=== PATIENT | female | born 1970 | race Caucasian/White ===

== ENCOUNTER 2017-02-05 03:09 | Observation (INO) | payer OTHER ==
[~2017-02-05] VITALS: Ht 167.6 cm; Wt 131.6 kg
--- NOTE | ~2017-02-05 | 2DMMODE ---
[facility] [place] [address] 2 D/M-MODE ECHOCARDIOGRAM Name: LUIZA CODY Room #: 433-I ADM IN [facility]#: [id number] Admission: 02/05/17 Attend Phys: Rich Lee Discharge: Date of : 74 Date of Service: 02/05/17 [facility] Report #: [id number] THIS REPORT FOR: //name// APPROVED REPORT EXAM: Comprehensive 2D, Doppler, and color-flow Echocardiogram Patient Location: Bedside Blood Pressure: 115/67 mmHg HR: 79 bpm Rhythm: NSR Other Information Study Quality: Adequate Indications Diabetes Dyspnea Chest Pain 2D Dimensions LVEF(%): 42.68 (>50%) IVSd: 12.14 (7-11mm) LVOT Diam: 20.00 (18-24mm) LVDd: 38.84 mm PWd: 12.39 (7-11mm) Ascending Aorta: 27.69 mm LVDs: 30.83 (25-40mm) Jurado's LVEF: 42.68 % Volumes Left Atrial Volume (Systole) Single Plane 4CH: 29.46 mL Single Plane 2CH: 50.18 mL LA ESV Index: 17.00 mL/m2 Aortic Valve AoV Peak Walker.: 1.29 m/s AO Peak Gr.: 7.32 mmHg LV Max P.99 mmHg LV Max: 0.86 m/s Mitral Valve MV PHT: 63.81 ms MV E Max Walker.: 1.18 m/s E/A Ratio: 1.4 MV A Walker.: 0.86 m/s MV Decel. Time: 220.03 ms [facility] [address] [place] [address] 2 D/M-MODE ECHOCARDIOGRAM Name: LUIZA CODY Room #: 433 ADM IN [facility]#: [id number] Admission: 02/05/17 Attend Phys: Rich eLe Discharge: Date of : 74 Date of Service: 02/05/17 1500 Report #: [id number] Pulmonary Valve PV Peak Walker.: 0.84 m/s PV Peak Gr.: 2.82 mmHg Left Ventricle The left ventricle is normal size. There is normal LV segmental wall motion. There is normal left ventricular wall thickness. Left ventricular systolic function is normal. LVEF is within normal limits. The left ventricular diastolic function is normal. Right Ventricle Right ventricle is dilated. The right ventricular systolic function is normal. Atria The left atrium size is normal. The right atrium size is normal. Aortic Valve The aortic valve is normal in structure. No aortic regurgitation is present. There is no aortic valvular stenosis. Mitral Valve The mitral valve is normal in structure. There is no mitral valve regurgitation noted. Tricuspid Valve The tricuspid valve is normal in structure. Trace tricuspid regurgitation. Pulmonic Valve The pulmonary valve is normal in structure. There is no pulmonic valvular regurgitation. Great Vessels The aortic root is normal in size. IVC is not visualized. Pericardium There is no pericardial effusion. <Conclusion> The left ventricle is normal size. LVEF is within normal limits. Right ventricle is dilated. The aortic valve is normal in structure. [facility] [address] [place] [address] 2 D/M-MODE ECHOCARDIOGRAM Name: LUIZA CODY [place] Room #: 433-I ADM IN ..#: [id number] Admission: 02/05/17 Attend Phys: Rich Lee Discharge: Date of : 74 Date of Service: 02/05/17 1500 Report #: [id number] The mitral valve is normal in structure. The tricuspid valve is normal in structure. Trace tricuspid regurgitation. <ELECTRONICALLY SIGNED> By: Gerson Oseguera MD 02/05/17 1500 1500 1500 Gerson Oseguera MD /INF
--- NOTE | ~2017-02-05 | CATHLAB ---
[facility] [place] [address] INVASIVE PROCEDURE REPORT Name: LUIZA CODY Room #: 433-I DIS IN [facility]#: [id number] Admission: 02/05/17 Attend Phys: Rich Lee Discharge: 02/06/17 Date of : 74 Date of Service: 02/06/17 0815 Report #: [id number] THIS REPORT FOR: //name// CC: Phillip Olivier PROCEDURE: Left heart coronary angiography. INDICATIONS: Chest pain. DESCRIPTION OF PROCEDURE: The potential benefits and risks of the procedure were discussed at length with the patient who understood. Full written and informed consent was obtained. The patient was brought into the catheterization suite where her right groin was prepped and draped in a sterile fashion. She was sedated with intravenous Versed, 1% Xylocaine was used as local anesthetic. A 6-Sammarinese sheath was placed in the right femoral artery by the modified Seldinger technique. Left heart catheterization was performed with a 6-Sammarinese angled pigtail catheter. Ventriculography was not performed. Pullback gradients were measured across the aortic valve. Selective coronary angiography was performed with a 6-Sammarinese left and right 4 cm Jasen coronary catheter. All diagnostic catheters were removed. A hand injection was performed to the right groin sheath with placement of a Mynx device upon removal of the sheath. The patient remained in excellent condition at the conclusion of the procedure with good right groin hemostasis and intact distal pulses. RESULTS: LEFT HEART HEMODYNAMICS: 1. Left ventricular systolic pressure of 140. 2. Left ventricular end diastolic pressure of 18. 3. Aortic valve, no gradient was present on pullback across the aortic valve, central aortic pressure of 140/70. SELECTIVE CORONARY ANGIOGRAPHY: 1. Left main: Left main was normal. 2. Left anterior descending: The left anterior descending was a large vessel that extended to the inferior apex. The LAD gave rise to several moderate sized diagonal branches. The LAD and its branches were normal. 3. The circumflex was large, but nondominant. Circumflex gave rise to 3 marginal branches. The marginal branches were small to moderate in size. Circumflex and its branches were normal. 4. Right coronary: The right coronary was large and dominant. The right coronary was normal throughout its course including a large posterior descending and posterolateral branch. SUMMARY: 1. Normal left main. [facility] [address] [place] [address] INVASIVE PROCEDURE REPORT Name: LUIZA CODY Room #: 433-I [facility] IN [facility]#: [id number] Admission: 02/05/17 Attend Phys: Rich Lee Discharge: 02/06/17 Date of : 74 Date of Service: 02/06/17 0815 Report #: [id number] 2. Normal coronary vasculature. This was a right coronary dominant circulation. <ELECTRONICALLY SIGNED> By: Apolinar Butts MD, [facility] 02/07/17 1703 0815 1037 Apolinar Butts MD, [facility] /nt
--- NOTE | ~2017-02-05 | HC ---
[facility] [address] [place] [address] CONSULTATION Name: LUIZA CODY Room #: [facility]-I [facility] MFidel#: [id number] Admission: 02/05/17 Attend Phys: David Olivier MD Discharge: Date of : 74 Report #: [id number] THIS REPORT FOR: //name// CC: Phillip Olivier DATE OF SERVICE: 02/05/2017 REASON FOR CONSULTATION: Chest pain. HISTORY OF PRESENT ILLNESS: The patient is a 46-year-old woman with a history of diabetes and tobacco dependency. She has a history of remote SVT. She now presents with a 1 week history of off and on again chest discomfort. She describes this as a squeezing like pain. She thought that this was her usual reflux and started taking antacids earlier in the week. Around midnight last night, the pain recurred. This was a severe midsternal chest tightness that radiated to the left arm and was associated with shortness of breath. Pain went through to her back. She presented to the Emergency Department at [facility] where she was given heparin, nitroglycerin, fentanyl, aspirin and Lopressor. She has had improvement, although not resolution of the pain. Her presenting EKG demonstrated no acute ST or T-wave changes. Initial and followup troponin levels have been normal. ALLERGIES: She is allergic to MORPHINE, CARROTS, ERYTHROMYCIN, REGLAN, ONIONS, SHELLFISH and IODINATED CONTRAST. MEDICATIONS: Include Humalog, Mirapex, metformin 1000 mg daily, Invokana 300 mg daily, simvastatin 20 mg daily. PAST MEDICAL HISTORY: Medical records have been reviewed and include history of diabetes, ovarian cancer with radical hysterectomy, venous clots related to 2 previous PICC line placements, cholecystectomy, appendectomy, multiple adhesions with adhesiolysis, perforated viscus at the time of Sedrick fundoplication. SOCIAL HISTORY: She is an ongoing smoker. . FAMILY HISTORY: Notable for premature coronary artery disease in both parents. REVIEW OF SYSTEMS: All systems negative except as that noted above. PHYSICAL EXAMINATION: GENERAL: A pleasant woman in no distress. VITAL SIGNS: Blood pressure is 115/67, heart rate of 96 and regular. She is afebrile, 5 feet 6 inches tall, 290 pounds. HEENT: There are neither xanthelasma, subcutaneous xanthomata, oral mucosal or digital cyanosis or kyphoscoliosis present. [facility] [address] [place] [address] CONSULTATION Name: LUIZA CODY Room #: 433-I [facility]#: [id number] Admission: 02/05/17 Attend Phys: David Olivier MD Discharge: Date of : 74 Report #: [id number] CHEST: Clear to auscultation and percussion. CARDIAC: Regular rate and rhythm with normal S1, S2. No murmurs or rubs. ABDOMEN: Soft and nontender. EXTREMITIES: Without cyanosis, clubbing or edema. Radial pulses are 2+. NEUROLOGIC: She is alert with a nonfocal exam. LABORATORY DATA: White count 10.5, hemoglobin 14, platelet count 194, glucose 155, creatinine 0.71. Sodium 140, potassium 3.6, alkaline phosphatase 130, CPK 0. IMPRESSION: 1. Chest pain with mixed features for ischemia. 2. Diabetes. 3. Dyslipidemia. 4. Tobacco dependency. 5. Family history of premature coronary artery disease. 6. IODINE allergy or CONTRAST allergy. RECOMMENDATIONS: 1. Serial cardiac enzymes. 2. Echocardiogram with Doppler. 3. Smoking cessation was encouraged. Smoking cessation counseling performed. 4. High intensity statin therapy, continued use of a daily aspirin. 5. Coronary angiography. Coronary angiography with premedication. I have discussed the angiographic procedure in detail with the patient. I have outlined its risks as well as the risks associated with a possible percutaneous intervention. After a thorough discussion of the procedure, its risks and alternatives and after answering her questions in detail. She is agreeable to proceeding. This will need to be performed after adequate premedication for her CONTRAST allergy. <ELECTRONICALLY SIGNED> By: Apolinar Butts MD, FACC 02/06/17 0810 0801 1040 Apolinar Butts MD, FAC /nt
--- NOTE | ~2017-02-05 | EKG ---
[place] [address] [address] [facility] [place] [address] ELECTROCARDIOGRAM REPORT Name: LUIZA CODY CAZARES Room #: 433-I [facility] M.R.#: [id number] Admission: 02/05/17 Attend Phys: David Olivier MD Discharge: Date of : 74 Report #: [id number] THIS REPORT FOR: //name// [facility] Test Date: 2017-02-05 Test Time: 09:32:43 Pat Name: LUIZA CODY Department: Room: [facility] Gender: F [employer] Worker: brenton : 1970 Requested By: Katerin Nino Order Number: [id number] MD: Apolinar Butts Measurements Intervals Froid Rate: 84 P: 49 [place]: 149 QRS: 61 QRSD: 100 T: 26 QT: 381 QTc: 451 Interpretive Statements Sinus rhythm Anteroseptal infarct, age indeterminate No previous ECG available for comparison Electronically Signed On 02-06-2017 8:29:07 CDT by Apolinar Butts [email or web address] <ELECTRONICALLY SIGNED> By: Apolinar Butts MD, [facility] 02/06/17 0829 0932 1 Apolinar Butts MD, FACC /EPI
[~2017-02-05 03:09] MED LIST: ACIDOPHILUS LA1 EACH PO; ASA5UEC PO; ATIVAN0.5 MG PO; CIPROFLOXACIN500 M1 PO; COLACE 100 MG100 MG PO; DILAUDID2 MG PO; FLAGYL500 MG PO; HUMALOG100 UNIT/1 SQ; IBUPROFEN 800800 MG PO; INDOMETHACIN 2525 MG PO; LEVEMIR100 UNIT/1 SQ; LIPITOR10 MG PO; METFORMIN HCL500 MG PO; METOPROLOL SUCC50 MG PO; MIRAPEX1 MG PO; MULTAQ 400 MG400 MG PO; NEXIUM40 MG PO; NORCO 10-325 T1 EACH PO; PERCOCET 10-321 EACH PO; PERCOCET 5-3251 EACH PO; PERCOCET PO; ROBAXIN 750 MG750 M1 PO; TYLENOL325 MG PO; ZOFRAN4 MG PO
[2017-02-05 04:40] VITALS: BP 115/67
[2017-02-05] MEDS ORDERED: METFORMIN HCL500 MG PO (05:06)
[2017-02-05] MEDS ORDERED: INVOKANA300 MG PO (05:08)
[2017-02-05] MEDS ORDERED: TOUCH-TROL1 EACH MC (05:08)
[2017-02-05] MEDS ORDERED: ZOCOR20 MG PO (05:09)
[2017-02-05 07:33] LABS: ALBUMIN 3.2 g/dL (3.4-5.0); ALKALINE PHOSPHATASE 122 U/L (46-116); ANION GAP 11 mmol/L (7-16); BUN 12 mg/dL (7-18); CALCIUM 9.2 mg/dL (8.5-10.1); CHLORIDE 103 mmol/L (98-107); CO2 27 mmol/L (21-32); CREATININE 0.7 mg/dL (0.6-1.3); GLUCOSE 146 mg/dL (70-99); POTASSIUM 3.9 mmol/L (3.5-5.1); SGOT 13 U/L (15-37); SGPT 19 U/L (30-65); SODIUM 141 mmol/L (136-145); TOTAL BILIRUBIN 0.3 mg/dL (<0.1-1.0); TOTAL PROTEIN 7.4 g/dL (6.4-8.2); TROPONIN-I < 0.04 ng/mL (<0.04-0.07)
[2017-02-05 08:13] LABS: CHOLESTEROL 205 mg/dL (<200); HDL CHOLESTEROL 37 mg/dL (>40); LDL CHOLESTEROL 96 mg/dL (<100); TC:HDL 5.5 Ratio (Not establshd); TRIGLYCERIDE 360 mg/dL (<150); VLDL 72 mg/dL (<40)
[2017-02-05 16:00] VITALS: BP 147/81
[2017-02-05 19:15] VITALS: BP 120/70
[2017-02-06] VITALS (11 sets, daily range): BP systolic 117–155; BP diastolic 67–84
[2017-02-06 04:12] LABS: HEMOGLOBIN 14.8 gm/dL (12.0-15.0); MCH 31.3 pg (26.0-34.0); MCHC 32.9 g/dL (28.0-37.0); RBC 4.74 mil/uL (4.20-5.00); RDW 14.4 % (10.5-14.5); WBC 13.8 thou/uL (4.0-11.0)
[2017-02-06 04:16] LABS: CALCIUM 9.7 mg/dL (8.5-10.1); CREATININE 0.7 mg/dL (0.6-1.3); POTASSIUM 4.3 mmol/L (3.5-5.1)
[2017-02-06] MEDS ORDERED: ADULT LOW DOSE81 MG PO (09:59)
[2017-02-06] MEDS ORDERED: LOPRESSOR25 PO (09:59)
== END 2017-02-06 19:42 | disposition home or self-care (01) ==
LOC: 4S 03:09
PROVIDERS: Family Medicine; Internal Medicine; Nurse Practitioner
DX: R07.9 Chest pain, unspecified (principal); R06.02 Shortness of breath; Z72.0 Tobacco use; I48.0 Paroxysmal atrial fibrillation; E11.9 Type 2 diabetes mellitus without complications; E78.5 Hyperlipidemia, unspecified; C56.9 Malignant neoplasm of unspecified ovary; G47.33 Obstructive sleep apnea (adult) (pediatric); E66.01 Morbid (severe) obesity due to excess calories; I48.92 Unspecified atrial flutter

== ENCOUNTER → 2021-01-31 | Outpatient (CLI) | payer BC ==
[~2021-01-31] MED LIST changes: +ADULT LOW DOSE81 MG PO; +INVOKANA300 MG PO; +LOPRESSOR25 PO; +TOUCH-TROL1 EACH MC; +ZOCOR20 MG PO
== END ==
LOC: SJCVCIMAG 08:51
PROVIDERS: ATTEND Internal Medicine
DX: R00.0 Tachycardia, unspecified (principal); R00.2 Palpitations; I48.91 Unspecified atrial fibrillation; E11.9 Type 2 diabetes mellitus without complications; E78.5 Hyperlipidemia, unspecified; I10 Essential (primary) hypertension; F17.200 Nicotine dependence, unspecified, uncomplicated; Z79.4 Long term (current) use of insulin; Z79.899 Other long term (current) drug therapy

== ENCOUNTER 2021-04-20 06:31 | Observation (INO) | payer BC ==
[~2021-04-20] VITALS: Ht 167.6 cm; Wt 133.8 kg
[2021-04-20 07:42] LABS: ABSOLUTE NEUTROPHILS 7.4 thou/uL (1.4-8.2); EOSINOPHILS 2.7 % (0.0-3.0); HEMATOCRIT 43.1 % (37.0-47.0); HEMOGLOBIN 14.2 gm/dL (12.0-15.0); LYMPHOCYTES 26.6 % (24.0-44.0); MCH 32.6 pg (26.0-34.0); MCHC 32.8 g/dL (28.0-37.0); MCV 99.1 fL (80.0-100.0); MONOCYTES 8.2 % (1.0-8.0); PLATELET COUNT 290 thou/uL (150-400); POLYS 61.5 % (36.0-66.0); RBC 4.35 mil/uL (4.20-5.00); RDW 14.7 % (10.5-14.5)
[2021-04-20 07:48] VITALS: BP 102/67
[2021-04-20 07:52] LABS: CREATININE 0.8 mg/dL (0.6-1.0); POTASSIUM 4.1 mmol/L (3.5-5.1)
[2021-04-20] MEDS ORDERED: PROAIR HFA8.5 GM INH (07:56)
[2021-04-20] MEDS ORDERED: ZIPSOR25 MG PO (07:57)
[2021-04-20] MEDS ORDERED: CYMBALTA30 MG PO (07:58)
[2021-04-20] MEDS ORDERED: JARDIANCE10 MG PO (07:58)
[2021-04-20] MEDS ORDERED: NOVOLOG100 UNIT/M SUBQ (07:59)
[2021-04-20 08:00] LABS: TOTAL BILIRUBIN 0.2 mg/dL (0.2-1.0)
[2021-04-20] MEDS ORDERED: OMEPRAZOLE 20 M20 M1 PO (08:01)
[2021-04-20] MEDS ORDERED: TOPROL XL50 MG PO (08:01)
[2021-04-20] MEDS ORDERED: LEVEMIR FL100 UNIT/2 SUBQ (08:01)
[2021-04-20] MEDS ORDERED: OXYCONTIN10 M1 PO (08:02)
[2021-04-20] MEDS ORDERED: XARELTO20 MG PO (08:02)
[2021-04-20 08:09] LABS: APTT 23.9 Seconds (24.5-32.8); INR 0.87; PROTIME 9.5 Seconds (10.5-12.1)
[2021-04-20 12:15] VITALS: BP 129/67
[2021-04-20 12:25] VITALS: BP 129/67
--- NOTE | 2021-04-20 12:49 | NUR ---
PT ARRIVED FROM THE POSTOP AROUND 1220, PRIOR TO ARRIVAL, PT'S WAS AT BEDSIDE AND RN WAS ABLE TO RETREIVE INFORMATION FROM HIM, SURGERY FOR THE R KNEE WAS ABOUT A WEEK AND HALF AGO, NON WEIGHTBEARING AT THAT KNEE, THOUGH WAS REPORTED PT WAS MOBILIZING AROUND HOME USING A WALKER. PT HAS CHRONIC BACK PX, ACCOMPANIED AT THE TIME OF ARRIVAL, DUE TO BACK PX, PT WAS TRANSFERRED ON THE GURNEY AT ABOUT 15DEGREE HOB UP. RN CONTINUED, SITE HAD NO SIGNS OF BLEEDING OR PAIN AT THAT SITE. PT INSTRUCTED TO LAY FLAT POSSIBLE, CALL FOR NEEDS, HEMOSTASIS/GET UP TIME EXPLAINED TO BOTH PT AND SPOUSE. NO OTHER COMPLAINTS BESIDES PAIN AT THIS TIME.
[2021-04-20 20:00] VITALS: BP 117/78
[2021-04-21 00:16] VITALS: BP 114/77
[2021-04-21 07:23] VITALS: BP 120/48
[2021-04-21] MEDS ORDERED: ZOCOR20 MG PO (07:55)
--- NOTE | 2021-04-21 09:15 | NUR ---
ASSUMED PT CARE AT 0700, DUE TO POC PT ASSESSMENT PEFORMED AT AT THIS TIME. PT PREPARING TO BE D/C HOME WHEN ARRIVES. VSS. WILL CONTINUE TO MONITOR AND FOLLOW POC.
--- NOTE | 2021-04-21 09:32 | P ---
[facility] [place] [address] [place] [address] PROCEDURE REPORT Name: LUIZA CODY Room #: 208-P [facility] M.R.#: [id number] Admission: 04/20/21 Attend Phys: Collin Monsalve MD Discharge: Date of : 74 Report #: [id number] THIS REPORT FOR: cc: Phillip Frazier,Collin Vincent MD ~ DOC #: [id number] Collin Monsalve MD DATE OF SERVICE: 04/20/2021 PREOPERATIVE DIAGNOSIS: Atrial fibrillation. POSTOPERATIVE DIAGNOSIS: Atrial fibrillation. PROCEDURE PERFORMED: 1. Atrial fibrillation ablation -- CPT code 94459. 2. Program stimulation pacing after IV drug infusion, CPT code 72113. 3. 3D mapping, CPT code 00932. 4. Intracardiac echo, CPT code 88598. ANESTHESIA: The patient underwent general anesthesia with no anesthesia-related complications. INDICATIONS: The patient underwent informed consent. We discussed the details of the procedure including the risks, which include, but not limited to, bleeding, vascular damage, stroke, ID, cardiac perforation, damage to the salt river conduction system requiring permanent pacemaker. She understood these risks and is willing to proceed. DESCRIPTION OF PROCEDURE: The patient was brought to the EP laboratory in fasting and sedated state, prepped and draped in a sterile fashion. I obtained access to the right femoral vein x 3, placing 8, 9, and 7-Namibian short sheath using modified Seldinger technique; and under fluoroscopy, decapolar catheter was placed easily in the coronary sinus and ICE catheter was placed in the right atrium. Using intracardiac ultrasound, there was evidence of two left and two right pulmonary veins. The patient was systemically heparinized and a transseptal was performed using SL1 sheath and a [place] needle. I started using my standard needle, but then had to go to a large curve [place] needle. She had a very rotated heart; and in my usual fluoroscopic positioning of my SL1 sheath, I kept falling below the atrium and across the tricuspid valve. Therefore, I went more posteriorly in my VINSON projection than usual and then I came across the mid septum; and at this point, the transseptal was straightforward and I exchanged the SL1 sheath for the cryosheath and the ablation was initiated. Prior to ablation, I used the Lasso catheter to create a 3D geometry and voltage map of the left atrium and then the cryoballoon was placed in the left atrium for ablation. The left superior pulmonary vein and the left inferior pulmonary [address] [address] PROCEDURE REPORT Name: LUIZA CODY Room #: 208-P [facility] M.R.#: [id number] Admission: 04/20/21 Attend Phys: Collin Monsalve MD Discharge: Date of : 74 Report #: [id number] vein were in very close proximity. I attempted a 4-minute followed by 3-minute freeze of the left superior pulmonary vein and these attempts were very good, but the vein did not isolate. I performed a 100-second followed by 90 second freeze, each of which was inferiorly and superiorly directed, and this did not result in isolation. Then, I performed a final freeze of 120 seconds with the balloon primarily on the roof region above the left superior pulmonary vein and again this did not result in isolation. Therefore, I turned my attention to the left inferior pulmonary vein. This vein underwent a 4-minute freeze isolating at 34 seconds; and then when I interrogated the left superior pulmonary vein, it was now isolated. I turned my attention to the right-sided veins. The right superior pulmonary vein underwent a 3-minute freeze and isolated at 90 seconds. I came off because of cool temps. I performed a second freeze of 2 minutes duration. I came off because of cool temps. There was never any phrenic nerve compromise. The right inferior pulmonary vein needed a single 4-minute freeze isolating at 54 seconds. Next, a repeat voltage map was created and all 4 pulmonary veins were isolated. Post-ablation, an EP study was performed. Atrial burst pacing was performed and AV block was noted at 250 milliseconds. Atrial ERP was noted at 190 milliseconds at a 400-millisecond basic drive cycle length. No arrhythmias were induced. Isoproterenol was then initiated at 2 mcg per minute. With atrial burst pacing, there was evidence of right bundle branch block aberration. AV block was noted at 230 milliseconds. Atrial ERP was noted at 180 milliseconds at a 200-millisecond basic drive cycle length. I performed aggressive atrial burst pacing between 200-250 milliseconds and I could not induce any AFib, SVT, or atrial flutter. As such, the procedure was concluded. Using intracardiac ultrasound, I verified there was no pericardial effusion. The patient received systemic protamine and catheters and sheaths were pulled and hemostasis obtained. A [id number] suture was performed to the right groin region. CONCLUSIONS: 1. Successful AFib ablation with isolation of the pulmonary veins. 2. Normal EP study with no inducible arrhythmias on or off isoproterenol. MD NICA GonsalesC/CHRISTINE <ELECTRONICALLY SIGNED> By: Collin Monsalve MD 04/21/21 0932 1051 57 Collin Monsalve MD /sukh
[2021-04-21 09:45] VITALS: BP 120/48
== END 2021-04-21 10:11 | disposition home or self-care (01) ==
LOC: CATH 06:31 → 2N 12:47
PROVIDERS: ADMIT Internal Medicine Cardiovascular Disease; ATTEND Internal Medicine Cardiovascular Disease
DX: I48.91 Unspecified atrial fibrillation (principal); Z20.822 Contact with and (suspected) exposure to COVID-19; E11.9 Type 2 diabetes mellitus without complications; I10 Essential (primary) hypertension; E78.5 Hyperlipidemia, unspecified; E66.9 Obesity, unspecified; F17.200 Nicotine dependence, unspecified, uncomplicated; Z68.42 Body mass index [BMI] 45.0-49.9, adult; Z85.42 Personal history of malignant neoplasm of other parts of uterus; Z86.718 Personal history of other venous thrombosis and embolism; Z79.01 Long term (current) use of anticoagulants; Z79.899 Other long term (current) drug therapy
CPT/HCPCS: 62110; 62900; 65020; 70005